=== PATIENT | female | born 1985 ===

== ENCOUNTER 2018-12-05 17:58 | Emergency (ER) | payer OTHER ==
[~2018-12-05] VITALS: Ht 147.3 cm; Wt 33.1 kg
[~2018-12-05 17:58] MED LIST: BACL10; Bactrim Ds Tab1 EACH PO; CARB100ER; CARB200 PO; Calmoseptine Oi71 GM TP; DIAZ10 PO; DIAZ5 PO; KEPPRA PT; LACT10SY PO; LAVAP17G PO; [UNRECOGNIZED DRUG - OTHER]
[2018-12-05] MEDS ORDERED: MIRALAX17 GM (18:42)
[2018-12-05] MEDS ORDERED: BACL10 PO (18:43)
== END 2018-12-05 20:13 | disposition home or self-care (01) ==
LOC: ER 17:58
DX: K94.23 Gastrostomy malfunction (principal); Z88.0 Allergy status to penicillin; Z88.5 Allergy status to narcotic agent; Z88.8 Allergy status to other drugs, medicaments and biological substances; Z79.899 Other long term (current) drug therapy
CPT/HCPCS: 71046; 99283-25

== ENCOUNTER 2019-02-19 12:23 | Emergency (ER) | payer OTHER ==
[~2019-02-19] VITALS: Ht 149.9 cm; Wt 33.1 kg
[~2019-02-19 12:23] MED LIST changes: +BACL10 PO; +MIRALAX17 GM
== END 2019-02-19 16:46 | disposition home or self-care (01) ==
LOC: ER 12:23
DX: Z43.1 Encounter for attention to gastrostomy (principal); R82.998 Other abnormal findings in urine; Z88.0 Allergy status to penicillin; Z88.5 Allergy status to narcotic agent; Z88.8 Allergy status to other drugs, medicaments and biological substances; Z79.899 Other long term (current) drug therapy
CPT/HCPCS: 31720; 43762; 99283-25

== ENCOUNTER 2021-02-15 12:14 | Emergency (ER) | payer OTHER ==
[~2021-02-15] VITALS: Ht 142.2 cm; Wt 31.3 kg
[2021-02-15] MEDS ORDERED: DOXY100 PO (13:00)
== END 2021-02-15 13:18 | disposition home or self-care (01) ==
LOC: ER 12:14
DX: S60.455A Superficial foreign body of left ring finger, initial encounter (principal); G80.9 Cerebral palsy, unspecified; G40.909 Epilepsy, unspecified, not intractable, without status epilepticus; Z88.0 Allergy status to penicillin; Z88.5 Allergy status to narcotic agent; Z88.8 Allergy status to other drugs, medicaments and biological substances; Z79.899 Other long term (current) drug therapy; W45.8XXA Other foreign body or object entering through skin, initial encounter
CPT/HCPCS: 73120; 99283-25

== ENCOUNTER 2021-03-25 05:05 | Emergency (ER) | payer OTHER ==
[~2021-03-25] VITALS: Ht 147.3 cm; Wt 31.3 kg
[~2021-03-25 05:05] MED LIST changes: +DOXY100 PO
[2021-03-25 05:55] LABS: Hematocrit 44.6 % (33.0-51.0); Hemoglobin 14.9 g/dL (11.5-16.0); Mean Corpuscular HGB Conc 33.4 g/dL (31.5-36.5); Mean Corpuscular Volume 99 fL (80-100); Platelet Count 118 K/mm3 (150-400); RDW Coefficient Variation 11.8 % (11.7-14.2); RDW Standard Deviation 42.7 fL (35.1-46.3); Red Blood Cell Count 4.52 M/mm3 (3.80-5.20); White Blood Cell Count 4.78 K/mm3 (4.00-11.30)
[2021-03-25 06:03] LABS: Influenza A, PCR NEGATIVE (NEGATIVE); Influenza B, PCR NEGATIVE (NEGATIVE); Resp Syncytial Virus, PCR NEGATIVE (NEGATIVE)
[2021-03-25 06:12] LABS: BAND PERCENT MAN 28 % (0-8); BASOPHILS PERCENT MAN 0 % (0-2); EOSINOPHILS PERCENT MAN 0 % (0-6); LYMPHOCYTES ABSOLUTE MAN 0.19 K/mm3 (0.84-5.20); LYMPHOCYTES PERCENT MAN 4 % (21-46); MONOCYTES ABSOLUTE MAN 0.33 K/mm3 (0.16-1.47); MONOCYTES PERCENT MAN 7 % (4-13); NEUTROPHILS ABSOLUTE MAN 4.25 K/mm3 (1.96-9.15); SEG NEUTROPHILS PERCENT MAN 61 % (41-73); TOTAL CELLS COUNTED 100
[2021-03-25 06:15] LABS: Alanine Aminotransfer (ALT/SGP 47 U/L (12-78); Albumin, Blood 3.3 g/dL (3.4-5.0); Albumin/Globulin Ratio 0.8 (0.8-1.8); Alk Phos 111 U/L (50-136); Anion Gap 5 mmol/L (6-16); Aspartate Aminotrans (AST/SGOT 33 U/L (12-37); Bilirubin, Total 0.4 mg/dL (0.1-1.0); Blood Urea Nitrogen 9 mg/dL (8-24); Bun/Creatinine Ratio 22.9 (12.0-20.0); CO2, Blood 27 mmol/L (21-32); Calcium, Blood 8.9 mg/dL (8.5-10.1); Chloride, Blood 104 mmol/L (98-108); Creatinine, Blood 0.39 mg/dL (0.40-1.00); Globulin, Blood 4.3 g/dL (2.2-4.0); Glomerular Filtration Rate >60 (60-); Glucose, Blood 119 mg/dL (70-99); Potassium, Blood 3.7 mmol/L (3.5-5.5); Sodium, Blood 136 mmol/L (136-145); Total Protein, Blood 7.6 g/dL (6.4-8.2)
[2021-03-25 06:56] LABS: SARS-Cov-2 (COVID-19) PCR, MMC POSITIVE (NEGATIVE)
== END 2021-03-25 08:48 | disposition home or self-care (01) ==
LOC: ER 05:05
PROVIDERS: Emergency Medicine
DX: U07.1 COVID-19 (principal); Z88.0 Allergy status to penicillin; Z88.5 Allergy status to narcotic agent; Z88.8 Allergy status to other drugs, medicaments and biological substances; Z79.899 Other long term (current) drug therapy; G40.909 Epilepsy, unspecified, not intractable, without status epilepticus
CPT/HCPCS: 0241U; 71045; 80053; 83605; 85025; 87040; J7030

== ENCOUNTER 2021-03-29 09:26 | Emergency (ER) | payer OTHER ==
[~2021-03-29] VITALS: Ht 147.3 cm; Wt 31.3 kg
[~2021-03-29 09:26] MED LIST changes: -BACL10 PO; +BACL10 PT; -MIRALAX17 GM; +MIRALAX17 GM PT
[2021-03-29 12:00] LABS: BASOPHILS PERCENT AUTO 0 % (0-2); EOSINOPHILS PERCENT AUTO 0 % (0-6); Hematocrit 43.7 % (33.0-51.0); Hemoglobin 14.7 g/dL (11.5-16.0); IMMATURE GRAN PERCENT AUTO 0 % (0-1); LYMPHOCYTES ABSOLUTE AUTO 0.39 K/mm3 (0.84-5.20); LYMPHOCYTES PERCENT AUTO 19 % (21-46); MONOCYTES ABSOLUTE AUTO 0.14 K/mm3 (0.16-1.47); MONOCYTES PERCENT AUTO 7 % (4-13); Mean Corpuscular HGB 32.7 pg (26.0-34.0); Mean Corpuscular HGB Conc 33.6 g/dL (31.5-36.5); Mean Corpuscular Volume 97 fL (80-100); Mean Platelet Volume 11.5 fL (9.1-12.4); NEUTROPHILS PERCENT AUTO 74 % (41-73); Platelet Count 103 K/mm3 (150-400); RDW Coefficient Variation 11.9 % (11.7-14.2); RDW Standard Deviation 43.1 fL (35.1-46.3); White Blood Cell Count 2.03 K/mm3 (4.00-11.30)
[2021-03-29 12:03] LABS: Base Excess Venous 6.7 mmol/L; Bicarbonate Venous 29.6 mmol/L (24.0-30.0); PCO2 Venous 45.3 mmHg (38-42); PO2 Venous 118 mmHg (38-42); pH Blood Venous 7.44 (7.34-7.37)
[2021-03-29 12:21] LABS: Alanine Aminotransfer (ALT/SGP 214 U/L (12-78); Albumin, Blood 2.8 g/dL (3.4-5.0); Albumin/Globulin Ratio 0.6 (0.8-1.8); Alk Phos 168 U/L (50-136); Anion Gap 6 mmol/L (6-16); Aspartate Aminotrans (AST/SGOT 226 U/L (12-37); Bilirubin, Total 0.3 mg/dL (0.1-1.0); Blood Urea Nitrogen 10 mg/dL (8-24); Bun/Creatinine Ratio 24.9 (12.0-20.0); CO2, Blood 29 mmol/L (21-32); Calcium, Blood 8.4 mg/dL (8.5-10.1); Chloride, Blood 102 mmol/L (98-108); Globulin, Blood 4.5 g/dL (2.2-4.0); Glomerular Filtration Rate >60 (60-); Glucose, Blood 109 mg/dL (70-99); Magnesium, Blood 1.8 mg/dL (1.6-2.4); Potassium, Blood 3.9 mmol/L (3.5-5.5); Sodium, Blood 137 mmol/L (136-145); Total Protein, Blood 7.3 g/dL (6.4-8.2); Troponin I <0.015 ng/mL (0.000-0.040)
[2021-03-29 12:44] LABS: Influenza A, PCR NEGATIVE (NEGATIVE); Influenza B, PCR NEGATIVE (NEGATIVE); Resp Syncytial Virus, PCR NEGATIVE (NEGATIVE)
[2021-03-29 12:45] LABS: SARS-Cov-2 (COVID-19) PCR, MMC POSITIVE (NEGATIVE)
[2021-03-29] MEDS ORDERED: PROMETHAZINE12.5 M1 PT (14:00)
[2021-03-30] MEDS ORDERED: ACET325 PO (22:43)
[2021-03-30] MEDS ORDERED: BISA10S PR (22:43)
[2021-03-30] MEDS ORDERED: Fleet Enema132 ML PR (22:45)
[2021-03-30] MEDS ORDERED: Milk Of Ma400 MG/5 M PT (22:46)
[2021-03-30] MEDS ORDERED: NYAMYC15 G1 TOP ×2 (22:47→22:48)
[2021-03-30] MEDS ORDERED: MIRALAX17 GM PT (22:49)
[2021-03-30] MEDS ORDERED: [UNRECOGNIZED DRUG - OTHER] PT (22:51)
[2021-03-30] MEDS ORDERED: ROBITUSSIN COUGH PT (22:51)
[2021-03-30] MEDS ORDERED: TRIDERM28.4 GM TOP (22:52)
== END 2021-03-29 15:02 | disposition home or self-care (01) ==
LOC: ER 09:26
PROVIDERS: Student in an Organized Health Care Education/Training Program
DX: U07.1 COVID-19 (principal); J12.82 Pneumonia due to coronavirus disease 2019; R94.5 Abnormal results of liver function studies; G40.909 Epilepsy, unspecified, not intractable, without status epilepticus; Z86.69 Personal history of other diseases of the nervous system and sense organs; Z88.0 Allergy status to penicillin; Z88.5 Allergy status to narcotic agent; Z88.8 Allergy status to other drugs, medicaments and biological substances; Z79.899 Other long term (current) drug therapy
CPT/HCPCS: 0241U; 36415; 71045; 80053; 82803; 83735; 84145; 84484; 85025; 93005; 93010; 96374; 96375; 99284-25; J1885; J2550; J7030

== ENCOUNTER 2021-03-30 07:42 | Inpatient (IN) | payer OTHER ==
[~2021-03-30] VITALS: Ht 147.3 cm; Wt 31.3 kg
[~2021-03-30 07:42] MED LIST changes: +PROMETHAZINE12.5 M1 PT
[2021-03-30 08:23] LABS: BASOPHILS ABSOLUTE AUTO 0.01 K/mm3 (0.00-0.23); BASOPHILS PERCENT AUTO 0 % (0-2); EOSINOPHILS PERCENT AUTO 0 % (0-6); Hematocrit 41.9 % (33.0-51.0); Hemoglobin 14.3 g/dL (11.5-16.0); IMMATURE GRAN ABSOLUTE AUTO 0.01 K/mm3 (0.00-0.10); IMMATURE GRAN PERCENT AUTO 0 % (0-1); LYMPHOCYTES ABSOLUTE AUTO 0.22 K/mm3 (0.84-5.20); LYMPHOCYTES PERCENT AUTO 9 % (21-46); MONOCYTES ABSOLUTE AUTO 0.09 K/mm3 (0.16-1.47); MONOCYTES PERCENT AUTO 4 % (4-13); Mean Corpuscular HGB 32.9 pg (26.0-34.0); Mean Corpuscular HGB Conc 34.1 g/dL (31.5-36.5); Mean Corpuscular Volume 97 fL (80-100); Mean Platelet Volume 11.4 fL (9.1-12.4); NEUTROPHILS ABSOLUTE AUTO 2.04 K/mm3 (1.96-9.15); NEUTROPHILS PERCENT AUTO 86 % (41-73); Platelet Count 106 K/mm3 (150-400); RDW Coefficient Variation 11.9 % (11.7-14.2); RDW Standard Deviation 42.8 fL (35.1-46.3); Red Blood Cell Count 4.34 M/mm3 (3.80-5.20); White Blood Cell Count 2.37 K/mm3 (4.00-11.30)
[2021-03-30 08:48] LABS: Alanine Aminotransfer (ALT/SGP 247 U/L (12-78); Albumin, Blood 2.7 g/dL (3.4-5.0); Albumin/Globulin Ratio 0.6 (0.8-1.8); Alk Phos 179 U/L (50-136); Anion Gap 3 mmol/L (6-16); Aspartate Aminotrans (AST/SGOT 237 U/L (12-37); Bilirubin, Total 0.4 mg/dL (0.1-1.0); Blood Urea Nitrogen 9 mg/dL (8-24); Bun/Creatinine Ratio 20.8 (12.0-20.0); CO2, Blood 33 mmol/L (21-32); Calcium, Blood 8.7 mg/dL (8.5-10.1); Chloride, Blood 101 mmol/L (98-108); Creatinine, Blood 0.43 mg/dL (0.40-1.00); Globulin, Blood 4.3 g/dL (2.2-4.0); Glomerular Filtration Rate >60 (60-); Glucose, Blood 113 mg/dL (70-99); Potassium, Blood 3.9 mmol/L (3.5-5.5); Sodium, Blood 137 mmol/L (136-145)
--- NOTE | 2021-03-30 22:23 | NUR ---
[facility] ED [facility]. PATIENT ARRIVED VIA ED STRETCHER TO PCU; TRANSFER SLIDE FROM ED TO PCU STRETCHER. PATIENT FROM [facility]; NONVERBAL AT BASELINE; ABLE TO NOD YES OR NO TO SOME QUESTIONS. CLAUDIA Butler RN CALLED [facility] TO REQUEST PATIENT MEDICATION LIST, TUBE FEEDING SCHEDULE AND HISTORY; BINDER WILL BE DROPPED OFF WITH INFORMATION; CLAUDIA RECIEVED ORDER TO START HOME TUBE FEEDING REGULAR SCHEDULED 3X A DAY BUT TO GIVE A BOLUS TONIGHT SINCE PATIENT HAS NOT RECIEVED TF TODAY. SB/SR ON TELE; OXYGEN SATURATION ABOVE 90% ON 3LPM VIA NC; PATIENT ARRIVED TO UNIT WITH 6LPM VIA NC FROM ER. PATIENT HAS COUGH. PIV S/L. INCONTINENT; ATTENDS IN PLACE; Q2H TURN. PEG TUBE IN PLACE.
[2021-03-30] MEDS ORDERED: BISA10S PR (22:43)
[2021-03-30] MEDS ORDERED: ACET325 PO (22:43)
[2021-03-30] MEDS ORDERED: Fleet Enema132 ML PR (22:45)
[2021-03-30] MEDS ORDERED: Milk Of Ma400 MG/5 M PT (22:46)
[2021-03-30] MEDS ORDERED: NYAMYC15 G1 TOP ×2 (22:47→22:48)
[2021-03-30] MEDS ORDERED: MIRALAX17 GM PT (22:49)
[2021-03-30] MEDS ORDERED: [UNRECOGNIZED DRUG - OTHER] PT (22:51)
[2021-03-30] MEDS ORDERED: ROBITUSSIN COUGH PT (22:51)
[2021-03-30] MEDS ORDERED: TRIDERM28.4 GM TOP (22:52)
--- NOTE | 2021-03-31 06:06 | NUR ---
PATIENT SLEPT ABOUT EIGHT HOURS LAST NIGHT; COUGHED OFF AND ON; OXYGEN SATURATION ABOVE 90% ON 1.5-2 LPM VIA NC. HEART RATE DROPPED INTO HIGH 40'S WHEN SLEEPING. NO OTHER ACUTE CHANGES TO REPORT.
--- NOTE | 2021-03-31 17:55 | NUR ---
TRANSFER UPDATE REPORT GIVEN TO PJ MCADAMS AT 1986.
--- NOTE | 2021-03-31 19:06 | NUR ---
SHIFT SUMMARY PT VSS THROUGHOUT SHIFT WITH O2 SATS >90% ON 2 L NC. PT HAD 2 BM'S THAT WERE LOOSE. THE 1300 TUBE FEED HELD DUE TO HIGH RESIDUAL, SEE NOTES. PT HAD MULTIPLE PRODUCTIVE COUGHING FITS THROUGHOUT THE DAY, THIN/WHITE. SUCTION AT THE BEDSIDE. NO ACUTE CHANGES.
--- NOTE | 2021-04-01 06:39 | NUR ---
PATRICIA WAS PRODUCING MODERATE AMOUNTS OF THICK WHITE SPUTUM AND WAS ABLE TO PARTIALLY GET SOME OF IT OUT HERSELF.(WITH GREAT EFFORT ON HER PART) AND THE BULK OF IT OUT WITH SUCTION. NO SIGNS OF DISCOMFORT, AND THIS RN CHECKED WITH HER SEVERAL TIMES WHILE HER MOM WAS HERE SO THAT I COULD GET HER EXPRESSIONS IN AN EFFORT TO UNDERSTAND HER NEEDS PRIOR TO MOM LEAVING. ONE SMALL LOOSE STOOL IN THE EVENING. MOM WANTS JEVITY STOPPED THIS IS NOT HER REGIMEN, AND FEELS IT IS GIVING HER DIARRHEA. PERHAPS SOMETHING WITHOUT THE HIGH FIBER?
--- NOTE | 2021-04-01 11:11 | NUR ---
CALLED MAGDALENA, DEPUTY SHERIFF LIEUTENANT, WITH UPDATE. POSSIBLE D'C ON SATURDAY IF NO SETBACKS. [phone].
--- NOTE | 2021-04-01 14:51 | NUR ---
updated patients mom, mireya, on patient condition. mom to come in later.
--- NOTE | 2021-04-01 16:58 | NUR ---
ADVISED PT BLD PRESS. 89 SYSTOLIC. HAS RUN IN 90'S. HEART RATE 60'S. SAT'S 91-94% ON 1 LPM. TO ORDER FLUID BOLUS AND THEN RECHECK.
--- NOTE | 2021-04-01 18:08 | NUR ---
MULTIPLE COUGHING FITS T/O DAY, NONPRODUCTIVE. VERY LITTLE WITH SUCTION. 1-5 ML RESIDUAL ALL 3 FEEDINGS. PATIENT TOLERATED WELL. IV BOLUS GOING AT THIS TIME. UNABLE TO PUT FLUIDS IN WIDE OPEN PATIENT HAS SMALL IV AND IS A DIFFICULT START, SO GOING IN AT 75 ML/HR. HAD 2 LOOSE STOOLS. LEFT MESSAGE WITH DIETITIAN TO CHANGE TUBE FEEDING TO SOMETHING WITHOUT FIBER. HX CEREBRAL PALSEY. CONTRACTURES BUE, FLACCID BLE. OXYGEN AT 1 LPM WITH SATS 91-94%. WCTM
[2021-04-02 05:12] LABS: BASOPHILS ABSOLUTE AUTO 0.01 K/mm3 (0.00-0.23); BASOPHILS PERCENT AUTO 0 % (0-2); EOSINOPHILS PERCENT AUTO 0 % (0-6); Hematocrit 42.2 % (33.0-51.0); Hemoglobin 13.8 g/dL (11.5-16.0); IMMATURE GRAN ABSOLUTE AUTO 0.05 K/mm3 (0.00-0.10); IMMATURE GRAN PERCENT AUTO 1 % (0-1); LYMPHOCYTES ABSOLUTE AUTO 0.48 K/mm3 (0.84-5.20); LYMPHOCYTES PERCENT AUTO 7 % (21-46); MONOCYTES ABSOLUTE AUTO 0.44 K/mm3 (0.16-1.47); MONOCYTES PERCENT AUTO 6 % (4-13); Mean Corpuscular HGB 32.6 pg (26.0-34.0); Mean Corpuscular HGB Conc 32.7 g/dL (31.5-36.5); Mean Corpuscular Volume 100 fL (80-100); Mean Platelet Volume 11.5 fL (9.1-12.4); NEUTROPHILS ABSOLUTE AUTO 6.31 K/mm3 (1.96-9.15); NEUTROPHILS PERCENT AUTO 87 % (41-73); Platelet Count 157 K/mm3 (150-400); RDW Coefficient Variation 11.8 % (11.7-14.2); Red Blood Cell Count 4.23 M/mm3 (3.80-5.20); White Blood Cell Count 7.29 K/mm3 (4.00-11.30)
--- NOTE | 2021-04-02 05:53 | NUR ---
MULTIPLE SMALL BOUTS OF LIQUID STOOL EACH TIME PATRICIA HAD A COUGHING SPELL. IN ADDITION, PEG TUBE LEAKS AROUND EDGES AT THE SAME TIME UNDER THE SAME CONDITIONS. AREA BETWEEN REZA AREA AND RECTUM APPEARS EXCORIATED AFTER SO MANY LIQUID STOOLS. BARRIER CREAM APPLIED AFTER EACH CHANGE.
[2021-04-02 05:59] LABS: Albumin, Blood 2.7 g/dL (3.4-5.0); Anion Gap 8 mmol/L (6-16); Blood Urea Nitrogen 16 mg/dL (8-24); Bun/Creatinine Ratio 46.9 (12.0-20.0); CO2, Blood 28 mmol/L (21-32); Calcium, Blood 8.8 mg/dL (8.5-10.1); Chloride, Blood 108 mmol/L (98-108); Creatinine, Blood 0.34 mg/dL (0.40-1.00); Glomerular Filtration Rate >60 (60-); Glucose, Blood 122 mg/dL (70-99); Magnesium, Blood 2.3 mg/dL (1.6-2.4); Phosphorus, Blood 2.8 mg/dL (2.5-4.9); Potassium, Blood 4.4 mmol/L (3.5-5.5); Sodium, Blood 144 mmol/L (136-145)
--- NOTE | 2021-04-02 09:40 | NUR ---
PER NO IV ASSESS NEEDED IF IV GOES BAD
--- NOTE | 2021-04-02 11:43 | NUR ---
PER PATRICK, CAREGIVER, THEY WILL TAKE PATIENT BACK IF NOT ON OXYGEN AND NO FEVER. PATIENT 91-95% ON R.A. AND NO FEVER IN LAST 24 HOURS. NOTIFIED.
[2021-04-02] MEDS ORDERED: KEPPRA100 MG/11 PT (12:32)
[2021-04-02] MEDS ORDERED: DEXA1L PT (12:49)
[2021-04-02] MEDS ORDERED: LEVOFLOXAC PT (12:51)
--- NOTE | 2021-04-02 13:51 | NUR ---
REVIEW D'C WITH CAREGIVER. AWARE HAS MEDS AT [facility]. AWARE MADDI WILL CALL WITH FOLLOW UP APPOINTMENT. AWARE CAN RETURN IF ANY PROBLEMS. NO FEVER SINCE 03/30. AWARE NEEDS 2PM FEEDING. [facility] USED FOR BOLUS FEEDING THIS RN WAS NOT SURE IF IT WAS FROM [facility]. ANSWER ALL QUESTIONS. VERBALIZES UNDERSTANDING. SUPERVISOR TUMBLERS LIFTS PATIENT AND PUTS IN HER W/C. DELI DEPARTMENT MANAGER ESCORT TO POV.
== END 2021-04-02 13:52 | DRG 177 ==
LOC: ER 07:42 → ERHOLD 14:52 → PCU 14:52 → MEDS 03-31 19:05
PROVIDERS: Family Medicine; Physician Assistant; ADMIT Internal Medicine
PROC: 8E0ZXY6 Isolation (ICD-10-PCS; principal; 2021-03-30)
PROC: 3E0333Z Introduction of Anti-inflammatory into Peripheral Vein, Percutaneous Approach (ICD-10-PCS; 2021-03-30)
DX: U07.1 COVID-19 (principal); J12.82 Pneumonia due to coronavirus disease 2019; J96.01 Acute respiratory failure with hypoxia; D69.6 Thrombocytopenia, unspecified; R74.01 Elevation of levels of liver transaminase levels; D72.819 Decreased white blood cell count, unspecified; G40.909 Epilepsy, unspecified, not intractable, without status epilepticus; G80.9 Cerebral palsy, unspecified; Z88.0 Allergy status to penicillin; Z88.5 Allergy status to narcotic agent; Z88.8 Allergy status to other drugs, medicaments and biological substances; Z79.899 Other long term (current) drug therapy; Z93.1 Gastrostomy status; Z74.01 Bed confinement status
CPT/HCPCS: 36415; 80053; 80069; 83735; 85025; 94762; 96372; 96374; 96375; 99285; A9270; J0248; J0696; J1100; J1650; J1885; J7030; J7050

== ENCOUNTER 2021-09-01 23:24 | Emergency (ER) | payer OTHER ==
[~2021-09-01] VITALS: Ht 137.2 cm; Wt 38.6 kg
[~2021-09-01 23:24] MED LIST changes: +ACET325 PO; +BISA10S PR; +DEXA1L PT; +Fleet Enema132 ML PR; +KEPPRA100 MG/11 PT; +LEVOFLOXAC PT; +Milk Of Ma400 MG/5 M PT; +NYAMYC15 G1 TOP; +ROBITUSSIN COUGH PT; +TRIDERM28.4 GM TOP; +[UNRECOGNIZED DRUG - OTHER] PT
[2021-09-02 01:54] LABS: BASOPHILS ABSOLUTE AUTO 0.03 K/mm3 (0.00-0.23); BASOPHILS PERCENT AUTO 1 % (0-2); EOSINOPHILS ABSOLUTE AUTO 0.02 K/mm3 (0.00-0.68); EOSINOPHILS PERCENT AUTO 0 % (0-6); Hematocrit 47.1 % (33.0-51.0); Hemoglobin 16.2 g/dL (11.5-16.0); IMMATURE GRAN ABSOLUTE AUTO 0.04 K/mm3 (0.00-0.10); IMMATURE GRAN PERCENT AUTO 1 % (0-1); LYMPHOCYTES ABSOLUTE AUTO 1.27 K/mm3 (0.84-5.20); LYMPHOCYTES PERCENT AUTO 20 % (21-46); MONOCYTES ABSOLUTE AUTO 0.55 K/mm3 (0.16-1.47); MONOCYTES PERCENT AUTO 9 % (4-13); Mean Corpuscular HGB Conc 34.4 g/dL (31.5-36.5); Mean Corpuscular Volume 96 fL (80-100); Mean Platelet Volume 11.3 fL (9.1-12.4); NEUTROPHILS ABSOLUTE AUTO 4.37 K/mm3 (1.96-9.15); NEUTROPHILS PERCENT AUTO 70 % (41-73); Platelet Count 253 K/mm3 (150-400); RDW Coefficient Variation 11.8 % (11.7-14.2); RDW Standard Deviation 40.9 fL (35.1-46.3); Red Blood Cell Count 4.91 M/mm3 (3.80-5.20); White Blood Cell Count 6.28 K/mm3 (4.00-11.30)
[2021-09-02 01:56] LABS: Bun/Creatinine Ratio 37.3 (12.0-20.0); Calcium, Blood 9.4 mg/dL (8.5-10.1); Creatinine, Blood 0.32 mg/dL (0.40-1.00); Potassium, Blood 4.1 mmol/L (3.5-5.5)
[2021-09-02] MEDS ORDERED: BENADRYL25 MG PO (03:31)
== END 2021-09-02 03:43 | disposition home or self-care (01) ==
LOC: ER 23:24
PROVIDERS: Student in an Organized Health Care Education/Training Program
DX: L23.9 Allergic contact dermatitis, unspecified cause (principal); Z88.0 Allergy status to penicillin; Z88.5 Allergy status to narcotic agent; Z88.3 Allergy status to other anti-infective agents; Z79.899 Other long term (current) drug therapy
CPT/HCPCS: 73600; 80048; 85025; 93970; 96374; 99284-25; J1200

== ENCOUNTER 2024-05-15 12:43 | Emergency (ER) | payer OTHER ==
[~2024-05-15] VITALS: Ht 152.4 cm; Wt 35.4 kg
[~2024-05-15 12:43] MED LIST changes: +BENADRYL25 MG PO
[2024-05-15 13:48] VITALS: BP 163/111
== END 2024-05-15 19:11 | disposition home or self-care (01) ==
LOC: ER 12:43
DX: T74.21XA Adult sexual abuse, confirmed, initial encounter (principal); Z79.899 Other long term (current) drug therapy; Z88.0 Allergy status to penicillin; Z88.5 Allergy status to narcotic agent; Z88.8 Allergy status to other drugs, medicaments and biological substances
CPT/HCPCS: 99284

== ENCOUNTER → 2024-06-02 | Outpatient (CLI) | payer OTHER ==
[2024-06-02 21:45] LABS: Bacterial Vaginosis PCR Negative (NEGATIVE); Candida glabrata-krusei, PCR NOT DETECTED (NOT DETECT)
[2024-06-02 22:14] LABS: Candida Group, PCR DETECTED (NOT DETECT)
== END | disposition home or self-care (01) ==
LOC: LAB 16:33 → LAB SHORT 16:33
PROVIDERS: Physician Assistant
DX: N89.8 Other specified noninflammatory disorders of vagina (principal)
CPT/HCPCS: 81515

== ENCOUNTER → 2024-06-03 | Outpatient (CLI) | payer OTHER ==
[2024-06-03 16:14] LABS: Appearance, Urine Hazy (Clear); Bilirubin, Urine Neg (Neg); Blood, Urine Neg (Neg); Color, Urine Yellow (P-Yellow); Glucose Qualitative, Urine Neg (Neg); Ketones, Urine Neg (Neg); Leukocyte Esterase, Urine Neg (Neg); Nitrite, Urine Neg (Neg); Protein, Urine Neg (Neg); Urobilinogen, Urine NORM (Normal)
[2024-06-03 16:32] LABS: Amorphous Heavy (0-Heavy); Bacteria Few /hpf; Red Blood Cells, Urine 0-2 /hpf (0-2); Squamous Epithelial Cells Few /hpf (Few); White Blood Cells, Urine 0-2 /hpf (0-5)
== END ==
LOC: LAB SHORT 09:45 → LAB 09:45
PROVIDERS: Physician Assistant
DX: R30.0 Dysuria (principal)
CPT/HCPCS: 81001

== ENCOUNTER 2024-11-05 17:59 | Emergency (ER) | payer OTHER ==
[~2024-11-05] VITALS: Ht 121.9 cm; Wt 40.8 kg
[2024-11-05 19:01] LABS: BASOPHILS ABSOLUTE AUTO 0.03 K/mm3 (0.00-0.23); BASOPHILS PERCENT AUTO 1 % (0-2); EOSINOPHILS ABSOLUTE AUTO 0.13 K/mm3 (0.00-0.68); EOSINOPHILS PERCENT AUTO 3 % (0-6); Hematocrit 40.7 % (33.0-51.0); Hemoglobin 13.9 g/dL (11.5-16.0); IMMATURE GRAN ABSOLUTE AUTO 0.01 K/mm3 (0.00-0.10); IMMATURE GRAN PERCENT AUTO 0 % (0-1); LYMPHOCYTES ABSOLUTE AUTO 1.14 K/mm3 (0.84-5.20); LYMPHOCYTES PERCENT AUTO 28 % (21-46); MONOCYTES ABSOLUTE AUTO 0.37 K/mm3 (0.16-1.47); MONOCYTES PERCENT AUTO 9 % (4-13); Mean Corpuscular HGB Conc 34.2 g/dL (31.5-36.5); Mean Corpuscular Volume 93 fL (80-100); NEUTROPHILS ABSOLUTE AUTO 2.41 K/mm3 (1.96-9.15); NEUTROPHILS PERCENT AUTO 59 % (41-73); NRBC ABSOLUTE 0.00 K/mm3 (0.00-0.02); NRBC Auto 0.0 /100 WBC (0.0-0.2); Platelet Count 226 K/mm3 (150-400); RDW Coefficient Variation 12.0 % (11.7-14.2); RDW Standard Deviation 41.1 fL (35.1-46.3)
[2024-11-05 19:16] LABS: Alanine Aminotransfer (ALT/SGP 30.0 U/L (12-78); Albumin, Blood 3.4 g/dL (3.4-5.0); Albumin/Globulin Ratio 0.8 (0.8-1.8); Anion Gap 4.0 mmol/L (3-11); Aspartate Aminotrans (AST/SGOT 26.0 U/L (12-37); Bilirubin, Total 0.6 mg/dL (0.1-1.0); Blood Urea Nitrogen 8.0 mg/dL (8-24); CO2, Blood 29.0 mmol/L (21-32); Calcium, Blood 9.6 mg/dL (8.5-10.1); Chloride, Blood 101.0 mmol/L (98-108); Creatinine, Blood 0.38 mg/dL (0.40-1.00); Globulin, Blood 4.3 g/dL (2.2-4.0); Glucose, Blood 96.0 mg/dL (70-99); Potassium, Blood 3.9 mmol/L (3.5-5.5); Sodium, Blood 130.0 mmol/L (136-145); Total Protein, Blood 7.7 g/dL (6.4-8.2)
[2024-11-05 20:18] VITALS: BP 137/79
== END 2024-11-05 20:19 | disposition home or self-care (01) ==
LOC: ER 17:59
PROVIDERS: Emergency Medicine
DX: K59.00 Constipation, unspecified (principal); N20.0 Calculus of kidney; M62.838 Other muscle spasm; Z88.0 Allergy status to penicillin; Z88.5 Allergy status to narcotic agent; Z79.899 Other long term (current) drug therapy; Z79.2 Long term (current) use of antibiotics
CPT/HCPCS: 36415; 74018; 80053; 85025; 99284-25